=== PATIENT | male | born 1975 | race Hispanic/Latino ===

== ENCOUNTER 2018-04-27 00:31 | Observation (INO) | payer SELFPAY ==
[2018-04-27] MEDS ORDERED: Tranexamic Acid 1,000 MG/10 ML VIAL ONE ×4 (00:49→01:57)
[2018-04-27] MEDS ORDERED: Lidocaine 1% w/Epinephrine 1:100K 20 ML VIAL ONE (01:11)
[2018-04-27 01:25] LABS: Hemoglobin 15.4 g/dL (14.0-18.0); Mean Corpuscular HGB CONC 34.2 g/dL (32.0-36.0); Mean Corpuscular Hemoglobin 26.9 pg (27.0-31.0); Mean Corpuscular Volume 78.9 fL (78.0-98.0); Mean Platelet Volume 13.7 fL (7.4-10.4); Platelet Count 158 thou/uL (130-400); RBC Distribution Width 11.2 % (11.5-14.5); White Blood Cell (WBC) Count 13.6 thou/uL (4.8-10.8)
[2018-04-27 01:28] LABS: PTT 27.4 SEC (22.9-36.1); Prothrombin Time 13.2 SEC (12.0-14.7)
[2018-04-27 01:38] LABS: #Basophils 0.1 thou/uL (0.0-0.2); #Eosinphils 0.2 thou/uL (0.0-0.7); #Lymphocytes 2.5 thou/uL (1.20-3.40); #Monocytes 0.8 thou/uL (0.11-0.59); #Neutrophils 10.1 thou/uL (1.40-6.50); %Basophils 0.6 % (0.0-1.0); %Eosinophils 1.2 % (0.0-10.0); %Lymphocytes 18.3 % (21.0-51.0); %Monocytes 5.5 % (0.0-10.0); %Neutrophils 74.4 % (42.0-75.0); Large Platelets SLIGHT; MDiff Complete? YES; Platelet Morphology Comment Appears Adequate
[2018-04-27] MEDS ORDERED: Adacel (T-DAP) 0.5 ML SYRINGE ONE (02:55)
[2018-04-27] MEDS ORDERED: Clindamycin/D5W 900 mg/50 ml Premix Bag ONE (03:21)
--- NOTE | 2018-04-28 12:32 | CON ---
DATE OF CONSULTATION: 04/27/2018 HISTORY OF PRESENT ILLNESS: This is a 42-year-old male who experienced trauma intraorally after tryi ng to open a metal can with his teeth resulting in lacerations with uncontrolled bleeding for which O ral Surgery was consulted. PAST MEDICAL HISTORY: None. MEDICATIONS: None. ALLERGIES: None. PAST SURGICAL HISTORY: None. SOCIAL HISTORY: Denies alcohol, tobacco, illicit drug use. CURRENT MEDICATIONS: None. PHYSICAL EXAMINATION: VITAL SIGNS: Stable. Afebrile. GENERAL: The patient is awake and alert, lying on the bed. Difficulty obtaining the history of inju ry due to a language barrier. There is moderate swelling of the right buccal soft tissues. This thao s not extend below the inferior border of the mandible on the right side. The patient's maximum inte rincisal opening is within normal limits. Tongue full range of motion. Floor of mouth is soft. The re are 2 horizontal 1 cm lacerations in the right buccal mucosa next to the occlusal plane. Both are hemostatic without active bleeding at the time of exam. No foreign bodies appreciated within the wo unds, likely a hematoma within the buccal soft tissues. ASSESSMENT: A 42-year-old male status post intraoral trauma with intraoral lacerations and right brandon ek hematoma. PLAN: Local anesthesia was administered within the buccal soft tissues and a running 4-0 Vicryl sutu re was used for closure of the wounds without complication. A gauze pack was placed for hemostasis. An ice pack was placed for compression on the patient's outer cheek due to blood loss prior to the t charlie of my arrival. The patient is going to be admitted to observation by the ER physician and monito red for serial hemoglobins due to excessive blood loss. I recommend clindamycin 300 mg q.6 hours x1 week. Peridex mouth rinse 15 mL swish and spit b.i.d. x1 week. With the aid of a finishing tunnel operator discussed postop wound instructions and care, signs and symptoms of infection to look for and recommended follow up in 3-5 days in the oral surgery clinic. The leyla ent can call [phone] for an appointment or with questions or concerns or worrisome symptoms.
== END 2018-04-27 06:59 | disposition home or self-care (01) ==
LOC: SCSER 00:31 → SCSEROBS 02:10
PROVIDERS: ADMIT Emergency Medicine; ATTEND Emergency Medicine
DX: S01.512A Laceration without foreign body of oral cavity, initial encounter (principal); T75.89XA Other specified effects of external causes, initial encounter
CPT/HCPCS: 36430; 40830; 85025; 85610; 85730; 86850; 86900; 86901; 90471; 90715; 94760; 96361; 96365; 96366; 96368; 96376; G0378; J2001; J3490; P9016